=== PATIENT | female | born 1975 | race Caucasian/White ===

== ENCOUNTER 2025-01-16 22:55 | Emergency (ER) | payer OTHER, SELFPAY ==
--- NOTE | ~2025-01-16 | XR_ITS ---
XR abdomen/kub 1V Ordering provider: Beth Nicolas MD History: . eval stool burden . Comparison: None. FINDINGS: BOWEL: Metallic shadows are projected over the lower abdomen and pelvis. Contraceptive wires are seen in the tubes. Nonobstructive bowel gas pattern. Minimal fecal material is seen in the left side of t he pelvis. ORGANOMEGALY: None. SIGNIFICANT PATHOLOGIC CALCIFICATIONS: None. OTHER: No free air is seen under the diaphragm. IMPRESSION: NO ACUTE ABDOMINAL FINDINGS. Minimal fecal material seen in the left side of the colon Reviewed, dictated and finalized at location A.
[2025-01-16 22:58] VITALS: BP 155/105; PULSE 108; RESP 18; TEMP 36.6; O2SAT 100
[2025-01-17 01:30] VITALS: BP 143/89; PULSE 93; RESP 17; O2SAT 99
--- NOTE | 2025-01-17 02:00 | ED_ITS ---
HPI - Nausea/Vomiting/Diarrhea General Chief complaint: Nausea/Vomiting/Diarrhea Stated complaint: CONSTIPATION/ABDOMINAL CRAMPING Time Seen by Provider: 01/17/25 01:48 Source: patient and family () Mode of arrival: ambulatory Limitations: no limitations History of Present Illness HPI Narrative: 49 yo female presents constipation abdominal cramping. n She denies any rectal pain. She has nauseated and nonbloody nonbilious emesis. A colonoscopy he has somewhat recently been performed (last month). She notes that she has hemorrhoids. Patient s/p Essure control procedure. She has occasionally noticed some blood mixed in with stool. She has been trialing stool softener the past 4 days and is now passing small firm rock like stools. Non narcotic or opiate medications. She had started a new medicine for ADHD (atomoxetine) x10 days but then quit because it was making her sick even requiring taking Zofran, 4 days ago. She has noticed mucous discharge from rectum. She try 8 oz of magnesium citrate but then vomited shortly thereafter. She has also tried 2 suppositories a Fleet enema self administered at home although only a little. She denies any dysuria or hematuria. She also started hormone replacement therapy 12/31. Normal vaginal discharge. ALETHA was berries and granola earlier. No current appetite. Feels bloated/distended. Passing flatus. Related Data Allergies Allergy/AdvReac Type Severity Reaction Status Date / Time No Known Allergies Allergy Verified 01/16/25 23:05 [facility] Past Medical History Medical History (Updated 01/18/25 @ 12:32 by Beth Nicolas MD) Hormone replacement therapy 12/31/24 ADHD External hemorrhoids Encounter for Essure implantation Surgical History Surgical History H/O colonoscopy [facility] (Dec 2024) Social History Social History Living arrangements: with family Exam 2 Narrative: GENERAL: Well-appearing, well-nourished, and in no acute distress. HEAD: Normocephalic, atraumatic. EYES: Non injected, non icteric ENT: Nares clear, no rhinorrhea or epistaxis. NECK: Supple. CHEST: Speaking in full sentences. No respiratory distress. HEART: Tachycardic rate and rhythm. . ABDOMEN/GI: Soft, nondistended. Nontender to palpation throughout. No appreciable masses. No rigidity or guarding. No rebound tenderness. Not peritoneal. Rectal exam performed with nurse present. External non thrombosed hemorrhoids. Normal rectal tone. Normal appearing stool on gloved finger. FOBT/guiaic negative. No palpable masses. No appreciable stool ball in rectal vault. EXTREMITIES: Normal range of motion. No lower extremity edema. SKIN: Warm, dry, no rash. NEURO: No focal deficits. Alert and oriented x3. PSYCH: Normal mood and affect. Course Vital Signs Vital signs: Vital Signs Temperature 97.8 F 01/16/25 22:58 Pulse Rate 108 H 01/16/25 22:58 Respiratory Rate 18 01/16/25 22:58 Blood Pressure 155/105 H 01/16/25 22:58 Pulse Oximetry 100 01/16/25 22:58 Oxygen Delivery Room Air 01/16/25 22:58 Temperature 97.8 F 01/16/25 22:58 Pulse Rate 87 01/17/25 06:00 Respiratory Rate 14 01/17/25 06:00 Blood Pressure 139/81 01/17/25 06:00 Pulse Oximetry 100 01/17/25 06:00 Oxygen Delivery Room Air 01/16/25 22:58 MDM - Nausea/Vomiting/Diarrhea MDM Narrative Medical decision making narrative: Patient presents cramping and constipation. She went several days without having a bowel movement and has trialed magnesium citrate, to suppositories, Fleet enema at home as stool softeners 4 days. She has started to success and passing firm rock like small stools. She continues to feel uncomfortable. Passing flatus. In the emergency department she is afebrile vital signs notable for mild tachycardia as well as hypertension. She has a benign abdominal exam as it is soft and nontender. No stool ball in the rectal vault on bedside ABIMBOLA which was performed with RN present as card game operator. For this reason, will defer CT imaging. Mild hyponatremia, no prior for comparison. Patient received IV fluids medications. Reassessment she states she is somewhat more comfortable but is concerned because she feels she still needs to have adequate bowel movements. Patient requesting xray imaging to assess stool burden. Discussed a robust bowel regimen with the combination of stool softeners and laxatives and the role of each traditionally as well as when sympatomatic as she currently is. Urged her to continue the regimen, increase hydration, eat high fiber diet. Patient can also trial another enema at home. She does not feel she needs to have this performed in the ED in order to have a bowel movement here and would be more comfortable doing so at home. Differential Diagnosis Differential diagnosis: Likely other (constipation, bowel obstruction, obstipation; volvulus; considered medication side effect and/or other drug induced etiologies of constipation) Lab Data Attestation: I reviewed the patient's lab results. 01/17/25 02:13 01/17/25 02:13 Labs: Lab Results 01/17/25 01/17/25 Range/Units 02:13 03:06 WBC 7.7 (4.5-10.0) K/mm3 RBC 4.24 (4.2-5.4) M/mm3 Hgb 13.8 (12.0-15.0) g/dL Hct 40.2 (37.0-47.0) % MCV 94.8 (80-100) fl MCH 32.5 (26-34) pg MCHC 34.3 (32-36) g/dl RDW 12.2 (11.5-14.5) % Plt Count 246 (150-375) k/mm3 MPV 10.4 (7.4-10.4) fl Immature Gran % (Auto) 0.4 (0-0.5) % Neut % (Auto) 79.4 H (45.5-73.1) % Lymph % (Auto) 16.6 L (18.3-44.2) % Catron % (Auto) 3.1 (2.6-8.5) % Eos % (Auto) 0.4 (0-4.4) % Baso % (Auto) 0.1 L (0.2-1.2) % Lymph # (Auto) 1.28 (0.9-3.2) K/mm3 Catron # (Auto) 0.2 (0.1-0.6) K/mm3 Eos # (Auto) 0.0 (0-0.3) K/mm3 Baso # (Auto) 0.0 (0.0-0.1) K/mm3 Abs Immat Gran (auto) 0.03 (0.00-0.031) K/mm3 Absolute Neuts (auto) 6.1 (1.3-6.7) K/mm3 Absolute Nucleated RBC 0.000 (0.0-0.012) K/mm3 Nucleated RBC % 0.0 (0.0-0.2) % Sodium 134 L (137-145) mmol/L Potassium 3.9 (3.4-5.0) mmol/L Chloride 96 L (98-107) mmol/L Carbon Dioxide 31 H (22-30) mmol/L Anion Gap 7 (4-12) mmol/L BUN 12 (7-17) mg/dL Creatinine 0.71 (0.7-1.0) mg/dL Estim Creat Clear Calc 71 ml/min Estimated GFR > 60 (59 - ) Glucose 109 (65-110) mg/dL Calcium 8.9 (8.4-10.2) mg/dL Total Bilirubin 1.0 (0.2-1.3) mg/dL AST 25 (14-36) U/L ALT 21 (6-35) U/L Alkaline Phosphatase 87 (38-126) U/L Total Protein 7.0 (6.3-8.2) g/dL Albumin 4.6 (3.5-5.1) g/dL Lipase 54 (23-300) U/L Urine Color Yellow (Yellow) Urine Appearance Clear (Clear) Urine pH >=9.0 H (5.0-9.0) Ur Specific [place] 1.008 (1.001-1.035) Urine Protein Negative (Negative) mg/dL Urine Glucose (UA) Negative (Negative) mg/dL Urine Ketones 1+ H (Negative) mg/dL Ur Blood (Man) Negative (Negative) Urine Nitrate Negative (Negative) Urine Bilirubin Negative (Negative) Urine Urobilinogen 0.2 (<2.0) mg/dL Leukocyte Esterase Rfl Negative (Negative) TANJA/UL POC Urine HCG, Qual Negative (Negative) Imaging Data Attestation: I personally reviewed and interpreted this imaging study as follows: My impression: Patient has residual stool burden appreciated on abdominal x-ray on my independent interpretation particularly in the ascending colon Discharge Plan Discharge Clinical Impression: Hyponatremia, Constipation Patient Disposition: Home, Self-Care Condition: Stable Instructions: Antibiotic Form, Constipation (DC), High Fiber Diet (ED), Hyponatremia (ED) Additional Instructions: As we discussed, continue the bowel regimen that includes both stool softeners and laxatives. You can also use the Bentyl/dicyclomine or that is ordered which can help with the spasm abdominal cramping. Follow-up with your primary care physician. If you do not have 1 the name of the doctors listed below. Return to the emergency department with any new or worsening symptoms including if you stop passing stool or not passing gas (farting). Patient Language: Australian Prescriptions: New dicyclomine 10 mg capsule 20 mg PO BID PRN (Reason: abdominal pain) Qty: 20 0RF polyethylene glycol 3350 [Miralax] 17 gram/dose powder 17 g PO DAILY Qty: 119 0RF psyllium husk [Metamucil] 0.4 gram capsule 0.4 g PO DAILY Qty: 30 0RF magnesium citrate Solution 150 ml PO DAILY Qty: 296 0RF Follow-up/Referrals: Todd Lutz MD [Physician] - (Family practice/primary care) UNKNOWN,DOCTOR [Primary Care Provider] - Stand Alone Forms: Work/School Release IP Time of Disposition: 04:59
--- OUTSIDE RECORDS SUMMARY | 2025-01-17 02:24 | XMS_ITS | Encounter Summary ---
Author Organization [facility] Address 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
--- OUTSIDE RECORDS SUMMARY | 2025-01-17 02:24 | XMS_ITS | Encounter Summary ---
Author Organization [facility] Address [address] [place] [address] Care Team Providers Care Sed High School Teacher Name Role Phone Unavailable Primary Care Provider Unavailabl e Encounter Details Date Type Department Care Team (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
--- OUTSIDE RECORDS SUMMARY | 2025-01-17 02:24 | XMS_ITS | Encounter Summary ---
Author Organization [facility] Address [address] [place] [address] Care Team Providers Care Community Relations Coordinator Name Role Phone Unavailable Primary Care Provider Unavailabl e Encounter Details Date Type Department Care Team ([facility] st Contact Info) Description 10/10/1999 Outpatient Historical [facility] Primary Care - [address] [place] [phone] Maksim Ch, DO NO ADDRESS ON FILE Social History Tobacco Use Types Packs/Day Years Used Date Smoking Tobacco: Never Assessed Comments Unknown Sex and Gender Information Value Date Recorded Sex Assigned at Not on file 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
--- OUTSIDE RECORDS SUMMARY | 2025-01-17 02:24 | XMS_ITS | Encounter Summary ---
Author Organization [facility] Address [address] [place] [address] Care Team Providers Care Lottery Manager Name Role Phone Unavailable Primary Care Provider Unavailabl e Encounter Details Date Type Department Care Team (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
--- OUTSIDE RECORDS SUMMARY | 2025-01-17 02:24 | XMS_ITS | Encounter Summary ---
Author Organization [facility] Address [address] [place] [address] Care Team Providers Care Drug Safety Data Management Specialist Name Role Phone Unavailable Primary Care Provider Unavailabl e Encounter Details Date Type Department Care Team (Late st Contact Info) Description 04/10/2001 Outpatient Historical [facility] Primary Care - [address] [place] [phone] Maksim Ch, DO NO ADDRESS ON FILE Social History Tobacco Use Types Packs/Day Years Used Date Smoking Tobacco: Never Assessed Comments Unknown Sex and Gender Information Value Date Recorded Sex Assigned at Not on file 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
--- OUTSIDE RECORDS SUMMARY | 2025-01-17 02:24 | XMS_ITS | Encounter Summary ---
Author Organization [facility] Address 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
--- OUTSIDE RECORDS SUMMARY | 2025-01-17 02:24 | XMS_ITS | Encounter Summary ---
Author Organization [facility] Address 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
--- OUTSIDE RECORDS SUMMARY | 2025-01-17 02:25 | XMS_ITS | Clinical Summary ---
Author Organization [facility] [address] Address [address] [place] [address] Care Team Providers Care Mc Kay Machine Operator Name Role Phone Yumiko Wayne MD Unavailable Dixie Mckenzie PT Unavailable Unavailable Yumiko Wanye MD Primary Care Provider [phone] Vivienne Reece MD Unavailable Allergies No known active allergies Medications buPROPion XL (WELLBUTRIN XL) 300 mg 24 hr tablet Take 1 tablet (300 mg total) by mouth every morning 90 tablet 1 3 Active clonazePAM (KlonoPIN) 0.5 mg tablet Take 1 tablet (0.5 mg total) by mouth 2 (two) times a day as needed for anxiety Active lamoTRIgine (LaMICtal) 100 mg tablet TAKE 2 AND 1/2 TABLETS BY MOUTH DAILY 225 tablet 3 3 Active lisinopriL (PRINIVIL,ZESTR IL) 20 mg tablet 1 tablet (20 mg total) 5 Active tretinoin (RETIN-A) 0.025 % cream APPLY CREAM TOPICALLY TO FACE ONCE DAILY AT BEDTIME Active omeprazole (PriLOSEC) 40 mg capsule 1 capsule (40 mg total) 5 Active estradioL (VIVELLE-DOT) 0.05 mg/24 hrIndications:V asomotor Symptoms associated with Menopause Apply patch to dry skin twice weekly. Remove old patch. 24 patch 5 Active progesterone (Prometrium) 200 mg capsuleIndicati ons:Endometrial Hyperplasia Prevention Take one by mouth at bedtime 90 capsule 5 Active omeprazole (PriLOSEC) 20 mg capsule 8 12/21/19 25 Discontinu ed(Therapy completed) HYDROcodone-rocky taminophen (NORCO) 5-325 mg per tabletIndicatio ns:Pain Take 1 tablet by mouth every 8 (eight) hours as needed for pain 21 tablet 3 12/21/19 25 Discontinu ed(Therapy completed) ondansetron (ZOFRAN) 4 mg tabletIndicatio ns:Prevention of Post-Operative Nausea and Vomiting Take 1 tablet (4 mg total) by mouth every 6 (six) hours as needed for nausea or vomiting 30 tablet 1 3 12/21/19 25 Discontinu ed(Therapy completed) Active Problems Problem Noted Date Diagnosed Date Bipolar affective disorder, currently depressed, moderate 01/16/2023 Encounters Date Type Department Care Team Description 12/31/2024 11:55 AM ROCK CONTRACTOR Office Visit [facility] [id number] [address] Nancy Mayes NP Menopausal symptoms (Primary Dx) 12/30/2024 Results Follow-Up [facility] [address] [address] Nancy Mayes NP 2024 9:40 AM ROCK CONTRACTOR Office Visit [facility] [address] [address] Nancy Mayes NP Routine gynecological examination (Primary Dx); Menopausal symptoms; Breast cancer screening by mammogram from Last 3 Months Surgical History Surgery Date Site/Laterality Comments TONSILLECTOMY AND ADENOIDECTOMY as child Medical History Medical History Date Comments Bipolar affective disorder (HCC) Depression Anxiety Hypertension GERD (gastroesophageal reflux disease) Family History Medical History Relation Name Comments Cirrhosis Father Breast cancer Mother stage 2, was t old it was environmental. s/p lumpectomy and RT. Immunodeficiency Mother Pneumonia, sepis caused age 56. Colon cancer Neg Hx Ovarian cancer Neg Hx Relation Name Status Comments Father Mother Social History Tobacco Use Types Packs/Day Years Used Date Smoking Tobacco: Never Passive Smoke Exposure: Never Smokeless Tobacco: Never Tobacco Cessation:Counseling Given: Not Answered Comments No Sex and Gender Information Value Date Recorded Sex Assigned at Not on file Legal Sex Female 10:27 AM ROCK CONTRACTOR Gender Identity Female 12/03/2022 10:12 PM ROCK CONTRACTOR Sexual Orientation Straight 12/03/2022 10 :12 PM ROCK CONTRACTOR Obstetrics History Para Term AB IAB SAB Ectopic Multiple Livin g Live Births 2 2 2 2 2 Date Outcome GA Total Labor Labor/3rd Weight Sex Type Anes PTL Padma A1 A5 Name Clin 2000 Term 2001 Term Comments x2, 2 daughters, both he althy Last Filed Vital Signs Vital Sign Reading Time Taken Comments Blood Pressure 121/88 12/31/2024 11:55 AM ROCK CONTRACTOR Pulse 80 10/07/2023 1:25 PM ROCK CONTRACTOR Temperature 36.4 C (97.6 F) 05/25/2018 3:35 PM CDT Respiratory Rate 18 05/25/2018 3:34 PM CDT Oxygen Saturation 95% 05/25/2018 3:34 PM CDT Inhaled Oxygen Concentration - - Weight 59.4 kg (131 lb) 12/31/2024 11:55 AM ROCK CONTRACTOR Height 162.6 cm (5' 4 ) 12/31/2024 11:55 AM ROCK CONTRACTOR Body Mass Index 22.49 12/31/2024 11:55 AM ROCK CONTRACTOR Plan of Treatment Health Maintenance Due Date Last Done Comments Breast Cancer Screening-Mammogram 1974 Colon Cancer Screening-Colonoscopy 1974 Depression Screening 1974 Hepatitis C Screening 1974 DTaP/Tdap/Td Vaccine (1 - Tdap) 1985 Hepatitis B Screening 1992 Covid-19 Vaccine ( season) 2024 10/13/2021, 02/11/2021, 01/19/2021 Influenza Vaccine (#1) 2024 , 08/20/2020, 12/06/2016, Additional history exists Zoster Vaccine (1 of 2) 2024 Cervical Cancer Screening 2025 2024 Regular Well Visit/Exam 18-64 2025 2024 Pneumococcal vaccine <65 Aged Out No longer eligible based on patient's age to complete this topic Procedures Procedure Name Priority Date/Time Associated Diagnosis Comments THINPREP IMAGING PAP AND HPV MRNA E6/E7 REFLEX HPV 16,18/45 Routine 2024 11:28 AM ROCK CONTRACTOR Routine gynecological examination TESTOSTERONE, TOTAL AND FREE, SERUM Routine 2024 10:40 AM ROCK CONTRACTOR Menopausal symptoms COMPREHENSIVE METABOLIC PANEL Routine 2024 10:40 AM ROCK CONTRACTOR Menopausal symptoms ESTRONE Routine 2024 10:40 AM ROCK CONTRACTOR Menopausal symptoms ESTRADIOL Routine 2024 10:40 AM ROCK CONTRACTOR Menopausal symptoms from Last 3 Months Results * ThinPrep(R) Imaging Pap and HPV mRNA E6/E7 Reflex HPV 16,18/45 (2024 11:28 AM ROCK CONTRACTOR) CLINICAL INFORMATION: [facility] Comment:None given LMP [facility] Comment:NONE GIVEN Previous Pap [facility] Comment:NONE GIVEN Prev. Bx [facility] Comment:NONE GIVEN SOURCE: [facility] Comment:None given Pap, specimen adequacy [facility] Comment: Satisfactory for evaluation. Endocervical/transformation zone component present. Age and/or menstrual status not provided HPV interp [facility] Comment: Cytology Results: Negative for intraepithelial lesion or malignancy. COMMENTS [facility] Comment: This case could not be evaluated with computer assisted technology. The slide was manually screened according to routine procedures. Coin Rolling Machine Operator Gustavo [facility] Comment: TLS, CT(ASCP) CT Screening Location: [place] [address] Comment [facility] Comment: EXPLANATORY NOTE: The Pap is a screening test for cervical cancer. It is not a diagnostic test and is subject to false negative and false positive results. It is most reliable when a satisfactory sample, regularly obtained, is submitted with relevant clinical findings and history, and when the Pap result is evaluated along with historic and current clinical information. Human papillomavirus RNA, High Risk E6/E7 Not Detected Not Detected [facility] Comment: Methodology: Studio Assistant-Mediated Amplification This assay detects E6/E7 viral messenger RNA (mRNA) from 14 high-risk HPV types (16,18,31,33,35,39,45,51,52,56,58,59,66,68). Cervical sources are required for HPV testing. If a vaginal source from a patient who has had a total hysterectomy with removal of cervix was submitted, please contact the testing laboratory for alternative testing options. For additional information, please refer to http://education.ev-social/faq/ANW756j6 (This link if provided for information/ educational purposes only.) Swab 2024 11:2 8 AM ROCK CONTRACTOR 2024 11:20 PM ROCK CONTRACTOR Nancy Mayes STOCK PREPARATION SUPERVISOR LAB CYTOLOGY ORDERABLES Final Result [facility] [address] [place] [address] [facility] [address] [place] [address] * Estrone (2024 10:40 AM ROCK CONTRACTOR) Estrone, lc/ms/ms <10 pg/mL [facility], Comment: Adult Female Reference Ranges for Estrone: Follicular Phase: 10-138 pg/mL Luteal Phase: 16-173 pg/mL Postmenopausal Phase: < or = 65 pg/mL Pediatric Female Reference Ranges for Estrone: Pre-pubertal (1-9 years): < or = 34 pg/mL 10-11 years: < or = 72 pg/mL 12-14 years: < or = 75 pg/mL 15-17 years: < or = 188 pg/mL This test was developed and its analytical performance characteristics have been determined by [facility]. It has not been cleared or approved by FDA. This assay has been validated pursuant to the CLIA regulations and is used for clinical purposes. Blood 2024 10:4 0 AM ROCK CONTRACTOR 2024 10:41 AM ROCK CONTRACTOR Nancy RennyJuan Mayes STOCK PREPARATION SUPERVISOR LAB BLOOD ORDERABLES Final Re sult Performing Organization Address [facility]/ZIP Co de Phone Number [facility], [address] [place] [address] * Estradiol (2024 10:40 AM ROCK CONTRACTOR) Estradiol 16 pg/mL [facility] Comment: Reference Range Follicular Phase: 19-144 Mid-Cycle: 64-357 Luteal Phase: 56-214 Postmenopausal: < or = 31 Reference range established on post-pubertal patient population. No pre-pubertal reference range established using this assay. For any patients for whom low Estradiol levels are anticipated (e.g. males, pre-pubertal children and hypogonadal/post-menopausal females), the [facility] Estradiol, Ultrasensitive, LCMSMS assay is recommended (order code 15711). Please note: patients being treated with the drug fulvestrant (Faslodex(R)) have demonstrated significant interference in immunoassay methods for estradiol measurement. The cross reactivity could lead to falsely elevated estradiol test results leading to an inappropriate clinical assessment of estrogen status. [facility] order code [id number], Ultrasensitive LC/MS/MS demonstrates negligible cross reactivity with fulvestrant. Blood 2024 10:4 0 AM ROCK CONTRACTOR 2024 10:41 AM ROCK CONTRACTOR Nancy Mayes STOCK PREPARATION SUPERVISOR LAB BLOOD ORDERABLES Final Re sult [facility] [address] [address] * Testosterone, Total and Free, Serum (2024 10:40 AM ROCK CONTRACTOR) Testosterone 16 2 - 45 ng/dL [facility] Comment: For additional information, please refer to https://education.ev-social/faq/MMT076 (This link is being provided for informational/educational purposes only.) (Note) This test was developed and its analytical performance characteristics have been determined by [facility]. It has not been cleared or approved by the FDA. This assay has been validated pursuant to the CLIA regulations and is used for clinical purposes. Testosterone, free 1.6 0.1 - 6.4 pg/mL [facility] Comment: (Note) This test was developed and its analytical performance characteristics have been determined by [facility]. It has not been cleared or approved by the FDA. This assay has been validated pursuant to the CLIA regulations and is used for clinical purposes. [facility] [address] [place] [address],[address] [facility] [address] Brianna Delgado MD, PhD Sex hormone binding globulin 80.2 17 - 124 nmol/L [facility] Blood 2024 10:4 0 AM ROCK CONTRACTOR 2024 10:41 AM ROCK CONTRACTOR us Nancy Mayes STOCK PREPARATION SUPERVISOR LAB BLOOD ORDERABLES Final Re sult [facility] [address] [address], [address] [place] [address] * Comprehensive metabolic panel (2024 10:40 AM ROCK CONTRACTOR) Glucose 87 65 - 99 mg/dL [facility] Comment: Fasting reference interval BUN 9 7 - 25 mg/dL [facility] Creatinine 0.72 0.50 - 1.03 mg/dL [facility] eGFR 102 > OR = 60 mL/min/1.7 3m2 [facility] BUN/creat ratio SEE NOTE: 6 - 22 (calc) [facility] Comment: Not Reported: BUN and Creatinine are within reference range. Sodium 142 135 - 146 mmol/L [facility] Potassium, pl 4.0 3.5 - 5.3 mmol/L [facility] Chloride 103 98 - 110 mmol/L [facility] CO2 31 20 - 32 mmol/L [facility] Calcium 9.5 8.6 - 10.4 mg/dL [facility] Protein, sr 6.9 6.1 - 8.1 g/dL [facility] Albumin 4.8 3.6 - 5.1 g/dL [facility] GLOBULIN 2.1 1.9 - 3.7 g/dL (calc) [facility] Alb/glob ratio 2.3 1.0 - 2.5 (calc) [facility] Bilirubin, total 0.6 0.2 - 1.2 mg/dL [facility] Alk phos 71 37 - 153 U/L [facility] AST 19 10 - 35 U/L [facility] ALT (SGPT) 21 6 - 29 U/L [facility] Blood 2024 10:4 0 AM ROCK CONTRACTOR 2024 10:41 AM ROCK CONTRACTOR us Nancy Mayes STOCK PREPARATION SUPERVISOR LAB BLOOD ORDERABLES Final Re sult [facility] [address] [phone] from Last 3 Months Insurance [facility] [facility] H[facility]/PPO Address: [facility] [address] [place] [address] [facility]/PPO Address: [address] [address] [place] [address] [facility] CHOICE [employer] [facility]/PPO Address: [address] [address] [place] [address] Care Teams Mc Kay Machine Operator Relationship Specialty Start Date End Date Yumiko Wayne MD [address] [place] [address] [address] RADHA Saldana [address] [place] [address] PCP - General Family Medicine 06/06/18 Yumiko Wayne MD [address] [place] [address] [address] RADHA Saldana [address] [place] [address] Referring Physician Family Medicine 03/10/18 Dixie Mckenzie PT Physical Therapist Physical Therapy 03/17/18 [place] [address] [place] [address] Consulting Physician Obstetrics and Gynecology 12/20/24
--- OUTSIDE RECORDS SUMMARY | 2025-01-17 02:25 | XMS_ITS | Encounter Summary ---
Author Organization [facility] Address [address] [place] [address] Care Team Providers Care Front Maker Name Role Phone Unavailable Primary Care Provider Unavailabl e Encounter Details Date Type Department Care Team (Late st Contact Info) Description 02/07/2000 Outpatient Historical [facility] Primary Care - [address] [place] [address] Maksim Ch, DO NO ADDRESS ON FILE Social History Tobacco Use Types Packs/Day Years Used Date Smoking Tobacco: Never Assessed Comments Unknown Sex and Gender Information Value Date Recorded Sex Assigned at Not on file Legal Sex Female 3:32 AM VICE PRESIDENT NETWORK Gender Identity Not on file Sexual Orientation Not on file documented as of this encounter Plan of Treatment Not on file documented as of this encounter Visit Diagnoses Not on filedocumented in this encounter
--- OUTSIDE RECORDS SUMMARY | 2025-01-17 02:25 | XMS_ITS | Encounter Summary ---
Author Organization [facility] Address [address] [place] [address] Care Team Providers Care It Software Engineer Name Role Phone Yumiko Wayne MD Unavailable Dixie Mckenzie PT Unavailable Unavailable Yumiko Wayne MD Primary Care Provider [phone] Reason for Visit * Diagnostic Imaging (Routine) - Closed Specialty Diagnoses / Procedures Referred By Kirsty t Referred To Contact Diagnoses Left shoulder pain, unspecified chronicity Procedures XR Shoulder Left 2 or More Views Kirk Gomez PA [address] [place] [address] [address], [place] [address] Phone: tel: fax: Referral ID Status Reason Start Date Expiration Date Visits Re quested Visits Authorized [id number] Closed 08/09/2023 09/07/2024 1 1 Encounter Details Date Type Department Care Team (Late st Contact Info) Description 08/09/2023 11:14 AM CDT Hospital Encounter [facility] Orthopedics and Sports Medicine [address] [place] [address] [address], [place] [address] Social History Tobacco Use Types Packs/Day Years Used Date Smoking Tobacco: Never Passive Smoke Exposure: Never Smokeless Tobacco: Never Comments No Sex and Gender Information Value Date Recorded Sex Assigned at Not on file Legal Sex Female 10:27 AM SKILLED LABOR Gender Identity Female 12/03/2022 10:12 PM SKILLED LABOR Sexual Orientation Straight 12/03/2022 10 :12 PM SKILLED LABOR documented as of this encounter Plan of Treatment Not on file documented as of this encounter Procedures Procedure Name Priority Date/Time Associated Diagnosis Comments XR SHOULDER LEFT 2 OR MORE VIEWS Schedule Routine, Read Routine (OP Routine) 08/09/2023 11:14 AM CDT Closed nondisplaced fracture of greater tuberosity of left humerus, initial encounter documented in this encounter Results * XR Shoulder Left 2 or More Views (08/09/2023 11:14 AM CDT) Anatomical Region Laterality Modality Upper Extremities, Shoulder Left Digi fiorella Radiography Narrative 08/09/2023 11:38 AM CDT Four views of the left shoulder show well-maintained glenohumeral and acromioclavicular joint spaces. A type 1 acromion is seen. There is a nondisplaced greater tuberosity fracture that appears to have bony reabsorption in the area of the fracture line. Kirk SANCHEZ IMSamy XR PROCEDURES Edited Re sult - Final documented in this encounter Visit Diagnoses Not on filedocumented in this encounter Care Teams It Software Engineer Relationship Specialty Start Date End Date Yumiko Wayne MD [address] [place] [address] DR RADHA Sald[address] [place] [address] PCP - General Family Medicine 06/06/18 Yumiko Wayne MD [address] [place] [address] DR RADHA Saldana [address] [place] [address] Referring Physician Family Medicine 03/10/18 Dixie Mckenzie, PT Physical Therapist Physical Therapy 03/17/18 documented as of this encounter
--- OUTSIDE RECORDS SUMMARY | 2025-01-17 02:25 | XMS_ITS | Encounter Summary ---
Author Organization [facility] Address [address] [place] [address] Care Team Providers Care Animal Shelter Clerk Name Role Phone Unavailable Primary Care Provider Unavailabl e Encounter Details Date Type Department Care Team ([facility] st Contact Info) Description 05/30/1999 Outpatient Historical [facility] Primary Care - [address] [place] [address] Maksim Ch, DO NO ADDRESS ON FILE Social History Tobacco Use Types Packs/Day Years Used Date Smoking Tobacco: Never Assessed Comments Unknown Sex and Gender Information Value Date Recorded Sex Assigned at Not on file Legal Sex Female 3:32 AM BUDGET ACCOUNTANT Gender Identity Not on file Sexual Orientation Not on file documented as of this encounter Plan of Treatment Not on file documented as of this encounter Visit Diagnoses Not on filedocumented in this encounter
--- OUTSIDE RECORDS SUMMARY | 2025-01-17 02:25 | XMS_ITS | Referral Summary ---
Author Organization [facility] Address [address] [place] [address] Care Team Providers Care Preparation Supervisor Freezing Name Role Phone Unavailable Primary Care Provider Unavailabl e Source Comments [facility],non-owned Affiliates and Associated Physician Practices is amultiple site organization consisting of ambulatory clinics and hospital sitesin [place], [place], [place] and [place]. This disclosure is being madepursuant to the Care Everywhere program and may not contain all information available regarding this patient. Last updated 18.[facility] Social History Tobacco Use Types Packs/Day Years Used Date Smoking Tobacco: Never Assessed Sex and Gender Information Value Date Recorded Sex Assigned at Not on file Gender Identity Not on file Sexual Orientation Not on file Plan of Treatment Not on file
--- OUTSIDE RECORDS SUMMARY | 2025-01-17 02:25 | XMS_ITS | Encounter Summary ---
Author Organization [facility] Address [address] [place] [address] Care Team Providers Care Dry Cleaning Machine Operator Helper Name Role Phone Unavailable Primary Care Provider Unavailabl e Encounter Details Date Type Department Care Team (Late st Contact Info) Description 06/09/2001 Outpatient Historical [facility] Primary Care - [address] [place] [phone] Maksim hC, DO NO ADDRESS ON FILE Social History Tobacco Use Types Packs/Day Years Used Date Smoking Tobacco: Never Assessed Comments Unknown Sex and Gender Information Value Date Recorded Sex Assigned at Not on file Legal Sex Female 3:32 AM SLUBBER OPERATOR Gender Identity Not on file Sexual Orientation Not on file documented as of this encounter Plan of Treatment Not on file documented as of this encounter Visit Diagnoses Not on filedocumented in this encounter
--- OUTSIDE RECORDS SUMMARY | 2025-01-17 02:25 | XMS_ITS | Encounter Summary ---
Author Organization [facility] Address [address] [place] [address] Care Team Providers Care Stocking Inspector Name Role Phone Unavailable Primary Care Provider Unavailabl e Encounter Details Date Type Department Care Team ([facility] st Contact Info) Description 07/22/1998 Outpatient Historical [facility] Primary Care - [address] [place] [address] Maksim Ch, DO NO ADDRESS ON FILE Social History Tobacco Use Types Packs/Day Years Used Date Smoking Tobacco: Never Assessed Comments Unknown Sex and Gender Information Value Date Recorded Sex Assigned at Not on file Legal Sex Female 3:32 AM REGISTERED DENTAL ASSISTANT Gender Identity Not on file Sexual Orientation Not on file documented as of this encounter Plan of Treatment Not on file documented as of this encounter Visit Diagnoses Not on filedocumented in this encounter
--- OUTSIDE RECORDS SUMMARY | 2025-01-17 02:25 | XMS_ITS | Encounter Summary ---
Author Organization [facility] Address [address] [place] [address] Care Team Providers Care Channel Marketing Manager Name Role Phone Unavailable Primary Care Provider Unavailabl e Encounter Details Date Type Department Care Team ([facility] st Contact Info) Description 08/18/[address] [facility] Primary Care - [address] [place] [address] Maksim Ch, DO NO ADDRESS ON FILE Social History Tobacco Use Types Packs/Day Years Used Date Smoking Tobacco: Never Assessed Comments Unknown Sex and Gender Information Value Date Recorded Sex Assigned at Not on file Legal Sex Female 3:32 AM PRESS LOADER Gender Identity Not on file Sexual Orientation Not on file documented as of this encounter Plan of Treatment Not on file documented as of this encounter Visit Diagnoses Not on filedocumented in this encounter
--- OUTSIDE RECORDS SUMMARY | 2025-01-17 02:25 | XMS_ITS | Encounter Summary ---
Author Organization [facility] Address [address] [place] [address] Care Team Providers Care Enterprise Solutions Architect Name Role Phone Unavailable Primary Care Provider Unavailabl e Encounter Details Date Type Department Care Team (Latest Contact Info) Description 12/28/2024 Results Follow-Up [facility] [place] [address] [place] [address] Patricia Hernández MD [address] [address] [place] [address] COLONOSCOPY REPORT Social History Tobacco Use Types Packs/Day Years Used Date Smoking Tobacco: Never Smokeless Tobacco: Never Alcohol Use Standard Drinks/Week Comments Yes 4 (1 standard drink = 0.6 oz pur e alcohol) Feeling Safe Answer Date Recorded Are you in a relationship wi th someone who hurts you emotionally and/or physically? No 12/28/2024 Comments No Sex and Gender Information Value Date Recorded Sex Assigned at Not on file Legal Sex Female 3:32 AM INTERACTIVE GRAPHIC DESIGNER Gender Identity Not on file Sexual Orientation Not on file documented as of this encounter Plan of Treatment Not on file documented as of this encounter Visit Diagnoses Not on filedocumented in this encounter
--- OUTSIDE RECORDS SUMMARY | 2025-01-17 02:25 | XMS_ITS | Encounter Summary ---
Author Organization [facility] Address [address] [place] [address] Care Team Providers Care Engraving Patternmaker Name Role Phone Unavailable Primary Care Provider Unavailabl e Encounter Details Date Type Department Care Team (Late st Contact Info) Description 11/10/2021 Lab Requisition [facility] DermPath Lab [address] [place] [address] Jose Harris MD [address] [address] Social History Tobacco Use Types Packs/Day Years Used Date Smoking Tobacco: Never Assessed Sex and Gender Information Value Date Recorded Sex Assigned at Not on file Gender Identity Not on file Sexual Orientation Not on file documented as of this encounter Plan of Treatment Not on file documented as of this encounter Procedures Procedure Name Priority Date/Time Associated Diagnosis Comments DERMATOPATHOLOGY Routine 11/06/2021 12:0 0 AM PAPER MACHINE BACK TENDER documented in this encounter Results * DERMATOPATHOLOGY (11/06/2021 12:00 AM PAPER MACHINE BACK TENDER) Case Report Dermatopathology Report Case: [id number] Authorizing Provider: Jose Harris MD Collected: 11/06/2021 12:00 AM Ordering Location: [facility] Care DermPath Lab Received: 11/10/2021 07:39 AM Pathologist: Kelly Reese MD Specimen: Skin, left leg lower medial 2 1:04 PM PAPER MACHINE BACK TENDER DERMATOPATHOLOGY LABORATORY Final Diagnosis Specimen A. SKIN, left leg lower medial: DERMATOFIBROMA, HYPOCELLULAR (D23.9) 2 1:04 PM PAPER MACHINE BACK TENDER DERMATOPATHOLOGY LABORATORY Clinical History Dermatofibroma R/O BCC. 2 1:04 PM [facility] DERMATOPATHOLOGY LABORATORY Gross Description Specimen A: Received is one formalin filled container labeled with the patient's name and designated left leg lower medial. The specimen consists of a shave biopsy measuring 1s2p3ol. Jar 0. 2 1:04 PM [facility] DERMATOPATHOLOGY LABORATORY Microscopic Description Specimen A. SKIN, left leg lower medial: There is epidermal hyperplasia. Within the dermis, there are fibrohistiocytic cells in haphazard array among coarse collagen bundles. 2 1:04 PM PAPER MACHINE BACK TENDER DERMATOPATHOLOGY LABORATORY Disclaimer An external and internal positive and negative controls are appropriate for the histochemical, immunohistochemical and immunofluorescence stain(s) in this case (if any), except where stated explicitly. The performance characteristics of the stain(s) cited in this report were developed and its performance characteristic determined by the Dermatopathology Laboratory at [facility], directed by Dr. Hansel Cheung. These tests need not be, and therefore are not, approved by the [place] Food and Drug Administration. The tests are used for clinical purposes. Billing Codes Specimen Charges Stain Charges 55759 1 2 1:04 PM PAPER MACHINE BACK TENDER DERMATOPATHOLOGY LABORATORY Embedded Images 2 1:04 PM [facility] DERMATOPATHOLOGY LABORATORY Pathology/Cytolog y TISSUE SPECIMEN FROM SKIN / Unknown 11/06/2021 11/10/2021 7:39 AM PAPER MACHINE BACK TENDER Jose Harris MD LAB - PATHOLOGY/CYTO LOGY ORDERABLES DERMATOPATHOLOGY LABORATORY [facility] - Department of Dermatology [address], [address] [phone] documented in this encounter Visit Diagnoses Not on filedocumented in this encounter
--- OUTSIDE RECORDS SUMMARY | 2025-01-17 02:25 | XMS_ITS | Clinical Summary ---
Author Organization [facility] Address [address] [place] [address] Care Team Providers Care Canopy Inspector Name Role Phone Unavailable Primary Care Provider Unavailabl e Source Comments [facility],non-owned Affiliates and Associated Physician Practices is amultiple site organization consisting of ambulatory clinics and hospital sitesin [place], [place], [place] and [place]. This disclosure is being madepursuant to the Care Everywhere program and may not contain all information available regarding this patient. Last updated 18.[facility] dscovered Social History Tobacco Use Types Packs/Day Years Used Date Smoking Tobacco: Never Assessed Sex and Gender Information Value Date Recorded Sex Assigned at Not on file Gender Identity Not on file Sexual Orientation Not on file Plan of Treatment Health Maintenance Due Date Last Done Comments COLOGUARD (AGES 45-75) - COL ON CA SCREENING 1974 COLON MONITORING 1974 COLONOSCOPY - COLON CA SCREENING 1974 CT COLONOGRAPHY - COLON CA SCREENING 1974 Colorectal Cancer Screening 1974 FIT - COLON CA SCREENING 1974 FLEX SIG - COLON CA SCREENING 1974 LIPID TESTING 1974 MAMMOGRAM 1974 PAP SMEAR 1974 HIV SCREENING 1989 HEPATITIS C SCREENING 12/16/1992 DTAP/TDAP/TD VACCINES (1 - Tdap) 1993 HEPATITIS B VACCINE (1 of 3 - 19+ 3-dose series) 1993 COVID-19 VACCINE ( - 2023-2 5 season) 2024 INFLUENZA VACCINE (#1) 2024 DEPRESSION SCREENING 11/04/2024 PNEUMOCOCCAL VACCINE 50+ (1 of 1 - PCV) 2024 ZOSTER VACCINE (1 of 2) 2024 HIB VACCINE Aged Out No longer eligi ble based on patient's age to complete this topic HPV VACCINE Aged Out No longer eligi ble based on patient's age to complete this topic MENINGOCOCCAL (Group B) VACC INE SHARED DECISION-MAKING Aged Out No longer eligibl e based on patient's age to complete this topic MENINGOCOCCAL GROUPS A/C/Y/W VACCINE Aged Out No longer eligible b ased on patient's age to complete this topic PNEUMOCOCCAL VACCINE Aged Out No long er eligible based on patient's age to complete this topic
--- OUTSIDE RECORDS SUMMARY | 2025-01-17 02:25 | XMS_ITS | Encounter Summary ---
Author Organization [facility] Address [address] [place] [address] Care Team Providers Care Warp Tying Machine Tender Name Role Phone Yumiko Wayne MD Unavailable Dixie Mckenzie PT Unavailable Unavailable Yumiko Wayne MD Primary Care Provider [phone] Vivienne Reece MD Unavailable Encounter Details Date Type Department Care Team (Late st Contact Info) Description 12/30/2024 Results Follow-Up [facility] [address] [address] [place] [address] [place] [address] Social History Tobacco Use Types Packs/Day Years Used Date Smoking Tobacco: Never Passive Smoke Exposure: Never Smokeless Tobacco: Never Comments No Sex and Gender Information Value Date Recorded Sex Assigned at Not on file Legal Sex Female 10:27 AM COIN MACHINE OPERATOR Gender Identity Female 12/03/2022 10:12 PM COIN MACHINE OPERATOR Sexual Orientation Straight 12/03/2022 10 :12 PM COIN MACHINE OPERATOR documented as of this encounter Plan of Treatment Not on file documented as of this encounter Visit Diagnoses Not on filedocumented in this encounter Care Teams Warp Tying Machine Tender Relationship Specialty Start Date End Date Yumiko Wayne MD [address] [facility] [address] [place] [address] PCP - General Family Medicine 06/06/18 Yumiko Wayne MD [address] [facility] [address] [place] [address] Referring Physician Family Medicine 03/10/18 Dixie Mckenzie, PT Physical Therapist Physical Therapy 03/17/18 [place] [address] [place] [address] Consulting Physician Obstetrics and Gynecology 12/20/24 documented as of this encounter
--- OUTSIDE RECORDS SUMMARY | 2025-01-17 02:25 | XMS_ITS | Clinical Summary ---
Author Organization [facility] Address [address] [place] [address] Phone Care Team Providers Care Actimize Architect Name Role Phone Provider, None Primary Care Provider Unavailabl e Social History Tobacco Use Types Packs/Day Years Used Date Smoking Tobacco: Never Assessed Comments Unknown Sex and Gender Information Value Date Recorded Sex Assigned at Not on file Legal Sex Female 12:01 AM CDT Gender Identity Not on file Sexual Orientation Not on file Plan of Treatment Health Maintenance Due Date Last Done Comments Hepatitis C Virus (HCV) Screening 1974 TdaP Immunization 1974 Hepatitis B Immunization (1 of 3 - 19+ 3-dose series) 1993 Colonoscopy 2019 Colorectal Cancer Screening 2019 Influenza Immunization (#1) 2024 12/06/2016 SARS-COV-2 Immunization ( season) 2024 10/13/2021, 02/11/2021, 01/19/2021 Cologuard 2024 Immunochemical Fecal Occult Blood 2024 Pneumococcal Immunization (5 0+ years) (1 of 1 - PCV) 2024 Zoster Immunization (1 of 2) 2024 Respiratory Syncytial Virus (RSV) Immunization (Adult) (1 - 1-dose 75+ series) 2049 Meningococcal Immunization (ACWY) Aged Out No longer eligible b ased on patient's age to complete this topic Rotavirus Immunization Aged Out No lo nger eligible based on patient's age to complete this topic Care Teams Actimize Architect Relationship Specialty Start Date End Date Provider, None [place] PCP - General 03/08/18
--- OUTSIDE RECORDS SUMMARY | 2025-01-17 02:25 | XMS_ITS | Encounter Summary ---
Author Organization [facility] Address [address] [place] [address] Care Team Providers Care Circle Saw Operator Name Role Phone Unavailable Primary Care Provider Unavailabl e Encounter Details Date Type Department Care Team ([facility] st Contact Info) Description 02/20/1999 Outpatient Historical [facility] Primary Care - [address] [place] [address] Maksim Ch, DO NO ADDRESS ON FILE Social History Tobacco Use Types Packs/Day Years Used Date Smoking Tobacco: Never Assessed Comments Unknown Sex and Gender Information Value Date Recorded Sex Assigned at Not on file Legal Sex Female 3:32 AM STUDENT FINANCIAL SERVICES COUNSELOR Gender Identity Not on file Sexual Orientation Not on file documented as of this encounter Plan of Treatment Not on file documented as of this encounter Visit Diagnoses Not on filedocumented in this encounter
--- OUTSIDE RECORDS SUMMARY | 2025-01-17 02:25 | XMS_ITS | Data Portability ---
Author Organization [place] [facility], Main Office Address [address] [place] [address] Assessment No assessment recorded. Plan of Treatment Reminders Order Date Submit Date Provider Last Modified By Organization Details Last Modified Time Details Appointments FOLLOW UP 15 2024 09:45A M Dr. Harris Not available Not available Not available Lab None recorded. Referral None recorded. Procedures biopsy, skin (PROC) 2021 022 Not available 11/06/2021 14:42:08 Surgeries None recorded. Imaging None recorded. Medication Orders tretinoin 0.025 % topical cream 2024 025 [facility] [facility], [place], [address], 11/26/2024 14:33:12 Patient TargetsNo targets recorded. Patient Instructions Encounter Date Encounter Id Patient Instructions Last Modified By Organization Details Last Modified Time 11/06/2021 [id number] Informed consent . EtOH prep. 1% lidocaine with epinephrine. Shave biopsy from: LEFT LEG LOWER MEDIAL R/O DF, BCC, NEVUS AlCL3 hemostasis. Aquaphor, bandage and wound care given. Will call pt with path. Also had cryo to a left cheek lentigo vs mac SK ([place]). Not available 11/06/2021 14:44:48 11/26/2024 [id number] retin -A face Cryo to l cheek, l p shoulder mac SK vs lentigo. REVD DX TX AND ANCILLARY CARE. Sun protection. Revd spider vein; revd best tx if desired- laser-[facility] or [facility]. No evidence of CA. fu 6mos. Not available 11/26/2024 14:37:01 Reason for Referral None Reported. Problems Name Problem SNOMED Code Status Onset Date Resolution Date Notes Provider Name and Address Organization Details Recorded Time Chronic effect of ultraviolet radiation on normal skin 229654011 Active 2022 Jose Harris MD [address], [place], [address], [facility] 3 15:44:33 Spider telangiecta sis of skin Active 2024 Jose Harris MD [address], [place], [address], [facility] 5 14:33:26 Solar lentiginosi s 501000085 Active 2018 Jose Harris MD [address], [place], [address], [facility] 9 19:23:05 Keratosis 382968956 Active 2018 Jose Harris MD [address], [place], [address], [facility] 9 19:23:06 Dermatofibr ginna 336719030 Active 2018 Jose Harris MD [address], [place], [address], [facility] 9 19:23:06 Family history of malignant melanoma 950355405 Active 2018 Jose Harris MD [address], [place], [address], [facility] 9 19:23:59 Dermatofibr ginna of left lower limb 0476479598260 105 Active 2018 Jose Harris MD [address], [place], [address], [facility] 9 19:24:00 Actinic keratosis 848213504 Active 2020 Jose Harris MD [address], [place], [address], [facility] 1 18:46:28 Problem Notes None recorded. Medical Equipment None Reported. Allergies No known drug allergies Medications Name Sig Start Date Stop Date Status Note LastModified by Organization Details LastModified Time atorvastatin 20 mg tablet active Not Available Not Available Not Available lamotrigine 200 mg tablet active Not Available Not Available Not Available azithromycin 250 mg tablet active Not Available Not Available Not Available tretinoin 0.025 % topical cream APPLY CREAM TOPICALLY TO FACE ONCE DAILY AT BEDTIME active Not Available Not Available N ot Available lisinopril 20 mg tablet TAKE 1 TABLET BY MOUTH DAILY active Not Available Not Available Not Available ondansetron HCl 4 mg tablet TAKE 1 TABLET BY MOUTH EVERY 6 HOURS NEEDED FOR NAUSEA FOR VOMITING active Not Available Not Available No t Available clonazepam 0.5 mg tablet TAKE 1 TABLET BY MOUTH ONCE DAILY active Not Available Not Available No t Available diphenoxylat e-atropine 2.5 mg-0.025 mg tablet active Not Available Not Available No t Available omeprazole 40 mg capsule,elva yed release active Not Available Not Available Not Available tramadol 50 mg tablet TAKE 1 TABLET BY MOUTH EVERY 6 HOURS NEEDED active Not Available Not Available No t Available amitriptylin e 10 mg tablet active Not Available Not Available Not Available indomethacin 25 mg capsule active Not Available Not Available Not Available omeprazole 20 mg capsule,elva yed release active Not Available Not Available Not Available diclofenac sodium 75 mg tablet,delay ed release active Not Available Not Available N ot Available gabapentin 100 mg capsule active Not Available Not Available Not Available estradiol 0.01% (0.1 mg/gram) vaginal cream INSERT 1/2 (ONE-HALF) APPLICATORF UL VAGINALLY AT BEDTIME 3 TIMES A WEEK active Not Available Not Available No t Available methylpredni solone 4 mg tablets in a dose pack USE DIRECTED active Not Available Not Available No t Available fluticasone propionate 50 mcg/actuatio n nasal spray,suspen brant active Not Available Not Available Not Available lamotrigine 100 mg tablet TAKE 2 & 1/2 (TWO & ONE-HALF) TABLETS BY MOUTH ONCE DAILY active Not Available Not Available No t Available bupropion HCl XL 300 mg 24 hr tablet, extended release TAKE 1 TABLET BY MOUTH ONCE DAILY active Not Available Not Available No t Available Tylenol active Not Available Not Avail able Not Available Prilosec active Not Available Not Avai lable Not Available Lamictal active Not Available Not Avai lable Not Available Wellbutrin SR active Not Available Not Available Not Available hydrochlorot hiazide 12.5 mg tablet active Not Available Not Available No t Available peg 3350-electro lytes 236 gram-22.74 gram-6.74 gram-5.86 gram solution active Not Available Not Available Not Available Paxlovid 300 mg (150 mg x 2)-100 mg tablets in a dose pack TAKE 3 TABLETS TOGETHER (TWO 150 MG NIRMATRELVI R TABLETS AND ONE 100 MG RITONAVIR TABLET) BY MOUTH TWICE DAILY FOR 5 DAYS. active Not Available Not Available No t Available Veozah 45 mg tablet active Not Available Not Available Not Available Vitals None Recorded Social History None recorded. Functional Status None recorded. Mental Status None recorded. Family History Nothing Reported. Medical History No medical history recorded. Gynecological HistoryNo gynecological history recorded. Obstetrics History GPAL:G 0 P 0 0 0 0 Past Encounters Encounter ID Performer Location Encounter Start Date Encounter Closed Date Diagnosis/Indication Diagnosis SNOMED-CT Code Diagnosis ICD10 Code Diagnosis Note [id number] Jose Harris MD Main Office [address] [facility] [address] [place] [id number] 11/06/2021 14:27:28 12/07/2021 13:41:31 Neoplasm of uncertain behavior of skin 85995180 D48.5 [id number] Jose Harris MD Main Office [facility] [facility] [address] [place] [id number] 11/26/2024 14:14:01 11/26/2024 14:37:50 Solar lentiginosis 360480160 L81.4 Chronic ef fect of ultraviolet radiation on normal skin 935644380 L57.8 Spider tel angiectasis of skin 1524979211 D18.01 Health Concerns Section Related Observation LastModified by Organization Detai ls LastModified Time None Recorded Concern Status LastModified by Organization Details LastModified Time None Recorded Advance Directives Directive None Recorded Payers Encounter Date Sequence Insurance Name Policy Number Policy Beal Covered Member ID Beal Member ID Guarantor Name 11/06/2021 1 [facility] [id number] Jo Lemus [id number] Jo Lemus 11/26/2024 1 [facility] [id number] Jo Lemus [id number] Jo Lemus Notes Date Note Type Note Provider Name and Address Organization Details Recorded Time 11/06/2021 text/html Bx of the left leg lesion, see prev photo, revd.Also pleased with the right cheek- AK resolved post cryo.Had requested tx to a left cheek brown spot- mac SK vs lentigo. Will do today. Jose Harris MD [address] [facility] [address], [place], [address], [facility] 11/06/2021 14:46:42 11/26/2024 text/html Check spot red of l medial cheek.Spots, brown, i don't like, on the l cheek, l upper back.Check hands . Jose Harris MD [address] [facility] [address], [place], [address], [facility] 11/26/2024 14:37:35 OBGyn Episode No OBEpisode recorded.
--- OUTSIDE RECORDS SUMMARY | 2025-01-17 02:25 | XMS_ITS | Referral Summary ---
Author Organization [facility] [address] Address [address] [place] [address] Care Team Providers Care Kiln Stacker Name Role Phone Yumiko Wayne MD Unavailable Dixie Mckenzie PT Unavailable Unavailable Yumiko Wayne MD Primary Care Provider [phone] Vivienne Reece MD Unavailable Encounters Date Type Department Care Team Description 12/31/2024 11:55 AM ORNAMENTAL IRONWORKER HELPER Office Visit [facility] [address] [place] [address] Nancy Mayes NP Menopausal symptoms (Primary Dx) 12/30/2024 Results Follow-Up [facility] [place] [address] Nancy Mayes NP 2024 9:40 AM ORNAMENTAL IRONWORKER HELPER Office Visit [facility] [place] [address] Nancy Mayes NP Routine gynecological examination (Primary Dx); Menopausal symptoms; Breast cancer screening by mammogram from Last 3 Months Allergies No known active allergies Medications buPROPion [...] Bipolar affective disorder, currently depressed, moderate 01/16/2023 Social History Tobacco Use Types Packs/Day Years Used Date Smoking Tobacco: Never Passive Smoke Exposure: Never Smokeless Tobacco: Never Tobacco Cessation:Counseling Given: Not Answered Comments No Sex and Gender Information Value Date Recorded Sex Assigned at Not on file Legal Sex Female 10:27 AM ORNAMENTAL IRONWORKER HELPER Gender Identity Female 12/03/2022 10:12 PM ORNAMENTAL IRONWORKER HELPER Sexual Orientation Straight 12/03/2022 10 :12 PM ORNAMENTAL IRONWORKER HELPER Last Filed Vital Signs Vital Sign Reading Time Taken Comments Blood Pressure 121/88 12/31/2024 11:55 AM ORNAMENTAL IRONWORKER HELPER Pulse 80 10/07/2023 1:25 PM ORNAMENTAL IRONWORKER HELPER Temperature 36.4 C (97.6 F) 05/25/2018 3:35 PM CDT Respiratory Rate 18 05/25/2018 3:34 PM CDT Oxygen Saturation 95% 05/25/2018 3:34 PM CDT Inhaled Oxygen Concentration - - Weight 59.4 kg (131 lb) 12/31/2024 11:55 AM ORNAMENTAL IRONWORKER HELPER Height 162.6 cm (5' 4 ) 12/31/2024 11:55 AM ORNAMENTAL IRONWORKER HELPER Body Mass Index 22.49 12/31/2024 11:55 AM ORNAMENTAL IRONWORKER HELPER Plan of Treatment Not on file Procedures Procedure Name Priority Date/Time Associated Diagnosis Comments THINPREP IMAGING PAP AND HPV MRNA E6/E7 REFLEX HPV 16,18/45 Routine 2024 11:28 AM ORNAMENTAL IRONWORKER HELPER Routine gynecological examination TESTOSTERONE, TOTAL AND FREE, SERUM Routine 2024 10:40 AM ORNAMENTAL IRONWORKER HELPER Menopausal symptoms COMPREHENSIVE METABOLIC PANEL Routine 2024 10:40 AM ORNAMENTAL IRONWORKER HELPER Menopausal symptoms ESTRONE Routine 2024 10:40 AM ORNAMENTAL IRONWORKER HELPER Menopausal symptoms ESTRADIOL Routine 2024 10:40 AM ORNAMENTAL IRONWORKER HELPER Menopausal symptoms from Last 3 Months Results * ThinPrep(R) Imaging Pap and HPV mRNA E6/E7 Reflex HPV 16,18/45 (2024 11:28 AM ORNAMENTAL IRONWORKER HELPER) CLINICAL INFORMATION: [facility] Comment:None given LMP [facility] Comment:NONE GIVEN Previous Pap [facility] Comment:NONE GIVEN Prev. Bx [facility] Comment:NONE GIVEN SOURCE: [facility] Comment:None given Pap, specimen adequacy [facility] Comment: Satisfactory for evaluation. Endocervical/transformation zone component present. Age and/or menstrual status not provided HPV interp [facility] Comment: Cytology Results: Negative for intraepithelial lesion or malignancy. COMMENTS [facility] Comment: This case could not be evaluated with computer assisted technology. The slide was manually screened according to routine procedures. Flour Inspector [facility] Comment: TLS, CT(ASCP) CT Screening Location: [place] [address] [address] [facility] [address] Comment [facility] Comment: EXPLANATORY NOTE: The Pap is a [...] High Risk E6/E7 Not Detected Not Detected [facility] Comment: Methodology: Motor Expert-Mediated Amplification This assay detects E6/E7 viral messenger RNA (mRNA) from 14 high-risk HPV types (16,18,31,33,35,39,45,51,52,56,58,59,66,68). Cervical sources are required for HPV testing. If a vaginal source from a patient who has had a total hysterectomy with removal of cervix was submitted, please contact the testing laboratory for alternative testing options. For additional information, please refer to http://education.Wangdaizhijia/faq/QAI444h2 (This link if provided for information/ educational purposes only.) Swab 2024 11:2 8 AM ORNAMENTAL IRONWORKER HELPER 2024 11:20 PM ORNAMENTAL IRONWORKER HELPER Nancy Mayes METAL PRODUCTS VIEWER LAB CYTOLOGY ORDERABLES Final Result [place] [address] [place] [address] [facility] [address] [address] [address] * Estrone (2024 10:40 AM ORNAMENTAL IRONWORKER HELPER) Estrone, lc/ms/ms <10 pg/mL [facility]/ [facility], Comment: Adult Female Reference Ranges for Estrone: [...] analytical performance characteristics have been determined by [facility]. It has not been cleared or approved by FDA. This assay has been validated pursuant to the CLIA regulations and is used for clinical purposes. Blood 2024 10:4 0 AM ORNAMENTAL IRONWORKER HELPER 2024 10:41 AM ORNAMENTAL IRONWORKER HELPER Nancy Mayes METAL PRODUCTS VIEWER LAB BLOOD ORDERABLES Final Re sult [facility], [address] [place] [address] * Estradiol (2024 10:40 AM ORNAMENTAL IRONWORKER HELPER) [facility] Estradiol 16 pg/mL [facility] Comment: Reference Range Follicular Phase: 19-144 Mid-Cycle: 64-357 Luteal Phase: 56-214 Postmenopausal: < or = 31 Reference range established on post-pubertal patient population. No pre-pubertal reference range established using this assay. For any patients for whom low Estradiol levels are anticipated (e.g. males, pre-pubertal children and hypogonadal/post-menopausal females), the [facility] Estradiol, Ultrasensitive, LCMSMS assay is recommended (order code 44176). Please note: patients being treated with the drug fulvestrant (Faslodex(R)) have demonstrated significant interference in immunoassay methods for estradiol measurement. The cross reactivity could lead to falsely elevated estradiol test results leading to an inappropriate clinical assessment of estrogen status. [facility] order code [id number], Ultrasensitive LC/MS/MS demonstrates negligible cross reactivity with fulvestrant. Blood 2024 10:4 0 AM ORNAMENTAL IRONWORKER HELPER 2024 10:41 AM ORNAMENTAL IRONWORKER HELPER Nancy Mayes METAL PRODUCTS VIEWER LAB BLOOD ORDERABLES Final Re sult [facility] [address] [address] [address] * Testosterone, Total and Free, Serum (2024 10:40 AM ORNAMENTAL IRONWORKER HELPER) Testosterone 16 2 - 45 ng/dL [facility] Comment: For additional information, please refer to https://education.Wangdaizhijia/faq/ACE504 (This link is being provided for informational/educational purposes only.) (Note) This test was developed and its analytical performance characteristics have been determined by [facility]. It has not been cleared or approved by the FDA. This assay has been validated pursuant to the CLIA regulations and is used for clinical purposes. Testosterone, free 1.6 0.1 - 6.4 pg/mL [facility] Comment: (Note) This test was developed and its analytical performance characteristics have been determined by [facility]. It has not been cleared or approved by the FDA. This assay has been validated pursuant to the CLIA regulations and is used for clinical purposes. [facility] med fusion [address] [facility] [employer] [place] [address],[address] [facility] [address] Brianna Delgado MD, PhD Sex hormone binding globulin 80.2 17 - 124 nmol/L [facility] Blood 2024 10:4 0 AM ORNAMENTAL IRONWORKER HELPER 2024 10:41 AM ORNAMENTAL IRONWORKER HELPER Nancy Mayes METAL PRODUCTS VIEWER LAB BLOOD ORDERABLES Final Re sult [facility] [address] [place] [address], [address] [place] [address] * Comprehensive metabolic panel (2024 10:40 AM ORNAMENTAL IRONWORKER HELPER) Glucose 87 65 - 99 mg/dL [facility] Blood 2024 10:4 0 AM ORNAMENTAL IRONWORKER HELPER 2024 10:41 AM ORNAMENTAL IRONWORKER HELPER us Nancy Mayes METAL PRODUCTS VIEWER LAB BLOOD ORDERABLES Final Re sult [facility] [address] [address] [address] from Last 3 Months Insurance [facility] [place] [address] [place] [address] HEALTH Care Teams Kiln Stacker Relationship Specialty Start Date End Date Yumiko Wayne MD [address] [place] [address] [address] [place] [address] PCP - General Family Medicine 06/06/18 Yumiko Wayne MD [address] [place] [address] [address] [place] [address] Referring Physician Family Medicine 03/10/18 Dixie Mckenzie PT Physical Therapist Physical Therapy 03/17/18 [place] [address] [place] [address] Consulting Physician Obstetrics and Gynecology 12/20/24
--- OUTSIDE RECORDS SUMMARY | 2025-01-17 02:25 | XMS_ITS | Clinical Summary ---
Author Organization [facility] Address [address] [place] [address] Phone Care Team Providers Care Medical Clerk Name Role Phone Unavailable Primary Care Provider Unavailabl e Allergies No known active allergies Medications lamoTRIgine (LaMICtal) 100 mg tablet Take 100 mg by mouth daily. Active buPROPion HCL (WELLBUTRIN XL) 300 mg Extended Release 24 hour tablet Take 300 mg by mouth daily in the morning. Active atorvastatin (LIPITOR) 20 mg tablet Take 20 mg by mouth daily. Active lisinopriL (PRINIVIL) 20 mg tablet Take 20 mg by mouth daily. Active diclofenac sodium (VOLTAREN) 75 mg Tablet, Delayed Release (E.C.) Take 75 mg by mouth 2 times daily. Active omeprazole (PriLOSEC) 40 mg Capsule, Delayed Release(E.C.) Take 40 mg by mouth daily. Active fezolinetant (Veozah) 45 mg tablet Take 45 mg by mouth daily. Active clonazePAM (KlonoPIN) 0.5 mg Tablet Take 0.5 mg by mouth 3 times daily as needed for Anxiety. Active Encounters Date Type Department Care Team Description 01/13/2025 External Device Data [facility]CTION Provider, Abstract 01/12/2025 External Device Data [facility] AB[facility]CTION Provider, Abstract 01/09/2025 External Device Data [facility]CTION Provider, Abstract 01/09/2025 External Device Data [facility] Provider, Abstract 12/29/2024 External Device Data [facility] Provider, Abstract 12/29/2024 External Device Data [facility] Provider, Abstract 12/29/2024 External Device Data [facility] Provider, Abstract 12/28/2024 1:40 PM FLIGHT COMMUNICATIONS OFFICER - 12/28/2024 2:20 PM FLIGHT COMMUNICATIONS OFFICER Surgery [facility] [place] [address] [place] [address] Patricia Hernández MD COLONOSCOPY 12/28/2024 12:07 PM FLIGHT COMMUNICATIONS OFFICER Anesthesia Event [facility] [place] [address] [place] [address] Tr Sierra MD 12/28/2024 11:38 AM FLIGHT COMMUNICATIONS OFFICER - 12/28/2024 1:03 PM FLIGHT COMMUNICATIONS OFFICER Hospital Encounter [facility] [place] [address] [place] [address] Patricia Hernández MD Screen for colon cancer Discharge Disposition: Home or Self Care 12/28/2024 Results Follow-Up [facility] [place] [address] [place] [address] Patricia Hernández MD COLONOSCOPY REPORT 11/23/2024 Abstract [facility] Provider, Abstract from Last 3 Months Family History Medical History Relation Name Comments Colon Cancer Neg Hx Social History Tobacco Use Types Packs/Day Years Used Date Smoking Tobacco: Never Smokeless Tobacco: Never Tobacco Cessation:Counseling Given: Not Answered Alcohol Use Standard Drinks/Week Comments Yes 4 (1 standard drink = 0.6 oz pur e alcohol) Feeling Safe Answer Date Recorded Are you in a relationship wi th someone who hurts you emotionally and/or physically? No 12/28/2024 Comments No Sex and Gender Information Value Date Recorded Sex Assigned at Not on file Legal Sex Female 3:32 AM FLIGHT COMMUNICATIONS OFFICER Gender Identity Not on file Sexual Orientation Not on file Last Filed Vital Signs Vital Sign Reading Time Taken Comments Blood Pressure 121/68 12/28/2024 12:48 PM FLIGHT COMMUNICATIONS OFFICER Pulse 81 12/28/2024 12:48 PM FLIGHT COMMUNICATIONS OFFICER Temperature 36.4 C (97.5 F) 12/28/2024 12:31 PM FLIGHT COMMUNICATIONS OFFICER Respiratory Rate 17 12/28/2024 12:48 PM FLIGHT COMMUNICATIONS OFFICER Oxygen Saturation 98% 12/28/2024 12:48 PM FLIGHT COMMUNICATIONS OFFICER Inhaled Oxygen Concentration - - Weight 61.7 kg (136 lb) 12/28/2024 11:55 AM FLIGHT COMMUNICATIONS OFFICER Height 162.6 cm (5' 4 ) 12/28/2024 11:55 AM FLIGHT COMMUNICATIONS OFFICER Body Mass Index 23.34 12/28/2024 11:55 AM FLIGHT COMMUNICATIONS OFFICER Plan of Treatment Health Maintenance Due Date Last Done Comments DTAP/TDAP/TD VACCINES (1 - Tdap) 1993 HEPATITIS B VACCINES (1 of 3 - 19+ 3-dose series) 1993 CERVICAL CANCER SCREENING 2004 BREAST CANCER SCREENING 2014 FIT-DNA Q 3 years 2019 FIT/FOBT Q 1 year 2019 Flex Sig/CT Colonography Q 5 years 2019 INFLUENZA VACCINE (#1) 2024 , 08/20/2020, 12/06/2016 ZOSTER VACCINE (1 of 2) 2024 COLORECTAL SCREENING 12/28/2034 12/28/2024, 12/28/19 25 Colorectal Cancer Screening 12/28/2034 Preventative Visit- Commercial Completed 2024 Procedures Procedure Name Priority Date/Time Associated Diagnosis Comments CA COLONOSCOPY FLX DX W/COLLJ SPEC WHEN PFRMD 12/28/2024 1:40 PM FLIGHT COMMUNICATIONS OFFICER Screen for colon cancer COLONOSCOPY REPORT 12/28/2024 12 :30 PM FLIGHT COMMUNICATIONS OFFICER from Last 3 Months Results * COLONOSCOPY REPORT (12/28/2024 12:30 PM FLIGHT COMMUNICATIONS OFFICER) Narrative Procedure Note Patricia Hernández MD - 12/28/2024 12:30 PM CST [facility] Endoscopy Patient Name: Jo Lemus Procedure Date: 12/28/2024 Date of : 1975 Attending MD: Patricia Hernández MD, Procedure: Colonoscopy Indications: Screening for colorectal malignant neoplasm Providers: Patricia Hernández MD Referring MD: Zuly Obrien Medicines: Monitored Anesthesia Care Complications: No immediate complications. Procedure: Informed consent was obtained for the procedure, including moderate sedation after risks were discussed. Based on the pre-procedure assessment, including review of the patient's medical history, medications, allergies, and review of systems, the patient was deemed to be an appropriate candidate for sedation. A timeout was performed. Continuous ECG monitoring, pulse oximetry, blood pressure monitoring, and direct observation were performed. The Colonoscope was introduced through the anus and advanced to the terminal ileum. The colonoscopy was performed without difficulty. The patient tolerated the procedure well. The quality of the bowel preparation was excellent. The terminal ileum, ileocecal valve, appendiceal orifice, and rectum were photographed. Estimated Blood Loss: Estimated blood loss: none. Findings: The perianal and digital rectal examinations were normal. The terminal ileum appeared normal. Internal hemorrhoids were found during retroflexion. The hemorrhoids were small. The exam was otherwise without abnormality on direct and retroflexion views. Impression: - The examined portion of the ileum was normal. - Internal hemorrhoids. - The examination was otherwise normal on direct and retroflexion views. - No specimens collected. Recommendation: - Discharge patient to home. - Resume previous diet. - Continue present medications. - Repeat colonoscopy in 10 years for screening purposes. Patricia Hernández MD 12/28/2024 12:29:57 PM This report has been signed electronically. Number of Addenda: [address]; [place] [address] Patricia Hernández MD GI PROCEDURE ORDERABLES F inal Result from Last 3 Months Insurance Advance Directives For more information, please contact: [phone] * Full Code (Latest Code Status on File) Date Activated Date Inactivated Comments 12/28/2024 11:50 AM 12/28/2024 3:03 PM
--- OUTSIDE RECORDS SUMMARY | 2025-01-17 02:25 | XMS_ITS | Encounter Summary ---
Author Organization [facility] Address [address] [place] [address] Care Team Providers Care Podiatry Doctor Name Role Phone Unavailable Primary Care Provider Unavailabl e Encounter Details Date Type Department Care Team ([facility] st Contact Info) Description 11/18/1998 Outpatient Historical [facility] Primary Care - [address] [place] [address] Maksim Ch, DO NO ADDRESS ON FILE Social History Tobacco Use Types Packs/Day Years Used Date Smoking Tobacco: Never Assessed Comments Unknown Sex and Gender Information Value Date Recorded Sex Assigned at Not on file Legal Sex Female 3:32 AM TIRE MOLD ENGRAVER Gender Identity Not on file Sexual Orientation Not on file documented as of this encounter Plan of Treatment Not on file documented as of this encounter Visit Diagnoses Not on filedocumented in this encounter
--- OUTSIDE RECORDS SUMMARY | 2025-01-17 02:25 | XMS_ITS | Patient Health Summary ---
Author Organization [facility] Address [address] [place] [address] Care Team Providers Care Order Planner Name Role Phone Unavailable Primary Care Provider Unavailabl e Note from [facility],non-owned Affiliates and Associated Physician Practices is amultiple site organization consisting of ambulatory clinics and hospital sitesin [place], [place], [place] and [place]. This disclosure is being madepursuant to the Care Everywhere program and may not contain all information available regarding this patient. Last updated 18.[facility] Social History Tobacco Use Types Packs/Day Years Used Date Smoking Tobacco: Never Assessed Sex and Gender Information Value Date Recorded Sex Assigned at Not on file Gender Identity Not on file Sexual Orientation Not on file Procedures * DERMATOPATHOLOGY(Performed 11/06/2021) Results * DERMATOPATHOLOGY (11/06/2021 12:00 AM [facility]) Case Report Dermatopathology Report Case: [id number] Authorizing Provider: Jose Harris MD Collected: 11/06/2021 12:00 AM Ordering Location: [facility] DermPath Lab Received: 11/10/2021 07:39 AM Pathologist: Kelly Reese MD Specimen: Skin, left leg lower medial 2 1:04 PM [facility] DERMATOPATHOLOGY LABORATORY Final Diagnosis Specimen A. SKIN, left leg lower medial: DERMATOFIBROMA, HYPOCELLULAR (D23.9) 2 1:04 PM [facility] DERMATOPATHOLOGY LABORATORY Clinical History Dermatofibroma R/O BCC. 2 1:04 PM [facility] DERMATOPATHOLOGY LABORATORY Gross Description Specimen A: Received is one formalin filled container labeled with the patient's name and designated left leg lower medial. The specimen consists of a shave biopsy measuring [id number]. Jar 0. 2 1:04 PM [facility] DERMATOPATHOLOGY LABORATORY Microscopic Description Specimen A. SKIN, left leg lower medial: There is epidermal hyperplasia. Within the dermis, there are fibrohistiocytic cells in haphazard array among coarse collagen bundles. 2 1:04 PM [facility] DERMATOPATHOLOGY LABORATORY Disclaimer An external and internal positive and negative controls are appropriate for the histochemical, immunohistochemical and immunofluorescence stain(s) in this case (if any), except where stated explicitly. The performance characteristics of the stain(s) cited in this report were developed and its performance characteristic determined by the Dermatopathology Laboratory at [facility], directed by Dr. Hansel Cheung. These tests need not be, and therefore are not, approved by the [place] Food and Drug Administration. The tests are used for clinical purposes. Billing Codes Specimen Charges Stain Charges [address]33[address] 1 2 1:04 PM [facility] DERMATOPATHOLOGY LABORATORY Embedded Images 2 1:04 PM [facility] DERMATOPATHOLOGY LABORATORY Pathology/Cytolog y TISSUE SPECIMEN FROM SKIN / Unknown 11/06/2021 11/10/2021 7:39 AM SENIOR GAMEMASTER Jose Harris MD LAB - PATHOLOGY/CYTO LOGY ORDERABLES DERMATOPATHOLOGY LABORATORY [facility] - Department of Dermatology [address], [address] [phone]
--- OUTSIDE RECORDS SUMMARY | 2025-01-17 02:25 | XMS_ITS | Encounter Summary ---
Author Organization [facility] Address [address] [place] [address] Care Team Providers Care [employer] Name Role Phone Unavailable Primary Care Provider Unavailabl e Encounter Details Date Type Department Care Team ([facility] st Contact Info) Description 11/14/1998 Outpatient Historical [facility] Primary Care - [address] [place] [phone] Maksim Ch, DO NO ADDRESS ON FILE Social History Tobacco Use Types Packs/Day Years Used Date Smoking Tobacco: Never Assessed Comments Unknown Sex and Gender Information Value Date Recorded Sex Assigned at Not on file Legal Sex Female 3:32 AM TRANSFER IRON OPERATOR Gender Identity Not on file Sexual Orientation Not on file documented as of this encounter Plan of Treatment Not on file documented as of this encounter Visit Diagnoses Not on filedocumented in this encounter
[2025-01-17 03:04] LABS: Basophils Percent Auto 0.1 % (0.2-1.2); Eosinophils Percent Auto 0.4 % (0-4.4); Hematocrit 40.2 % (37.0-47.0); Hemoglobin 13.8 g/dL (12.0-15.0); Immature Granulocyte Absolute 0.03 K/mm3 (0.00-0.031); Immature Granulocyte Percent A 0.4 % (0-0.5); Lymphocytes Absolute Auto 1.28 K/mm3 (0.9-3.2); Lymphocytes Percent Auto 16.6 % (18.3-44.2); Mean Corpuscular HGB Conc 34.3 g/dl (32-36); Mean Corpuscular Hemoglobin 32.5 pg (26-34); Mean Corpuscular Volume 94.8 fl (80-100); Mean Platelet Volume 10.4 fl (7.4-10.4); Monocytes Absolute Auto 0.2 K/mm3 (0.1-0.6); Monocytes Percent Auto 3.1 % (2.6-8.5); Neutrophils Absolute Auto 6.1 K/mm3 (1.3-6.7); Neutrophils Percent Auto 79.4 % (45.5-73.1); Platelet Count Result 246 k/mm3 (150-375); Red Blood Count 4.24 M/mm3 (4.2-5.4); Red Cell Distribution Width 12.2 % (11.5-14.5); White Blood Count 7.7 K/mm3 (4.5-10.0)
[2025-01-17] MEDS: ACETAMINOPHEN 500 MG TABLET 1000 MG PO (03:07)
[2025-01-17] MEDS: SODIUM CHLORIDE 0.9% IV 1,000 ML 999 ML IV CONT (03:07)
[2025-01-17] MEDS: DICYCLOMINE HCL 10 MG CAPSULE 20 MG PO (03:08)
[2025-01-17] MEDS: KETOROLAC 15 MG/ML VIAL (*BKC) IV PUSH (03:08)
[2025-01-17 03:09] LABS: BEDSIDEPREGUCG Negative (Negative)
[2025-01-17 03:17] LABS: Alanine Aminotransferase 21 U/L (6-35); Albumin Level 4.6 g/dL (3.5-5.1); Alkaline Phosphatase 87 U/L (38-126); Anion Gap 7 mmol/L (4-12); Aspartate Amino Transferase 25 U/L (14-36); Blood Urea Nitrogen 12 mg/dL (7-17); Calcium 8.9 mg/dL (8.4-10.2); Carbon Dioxide 31 mmol/L (22-30); Chloride 96 mmol/L (98-107); Estimated CRCL calculation 71 ml/min; Estimated Glomerular Filt Rate > 60; Glucose 109 mg/dL (65-110); Lipase 54 U/L (23-300); Potassium 3.9 mmol/L (3.4-5.0); Sodium 134 mmol/L (137-145)
[2025-01-17 03:28] LABS: Add Urine Microscopic? NO; Appearance Urine Clear (Clear); Bilirubin Urine Negative (Negative); Blood Urine Negative (Negative); Color Urine Yellow (Yellow); Glucose Urine UA Negative (Negative); Ketones Urine 1+ mg/dL (Negative); Leukocyte Esterase Ur Negative LEU/UL (Negative); Nitrate Urine Negative (Negative); Protein Urine Negative (Negative); Specific Grav Ur 1.008 (1.001-1.035); Urobilinogen Urine 0.2 mg/dL (<2.0); pH Urine >=9.0 (5.0-9.0)
[2025-01-17 05:01] VITALS: BP 139/81; PULSE 87; RESP 14; O2SAT 100
[2025-01-17 06:00] VITALS: BP 139/81; PULSE 87; RESP 14; O2SAT 100
== END 2025-01-17 06:02 | disposition home or self-care (01) ==
PROVIDERS: Physician Assistant; Emergency Provider Student in an Organized Health Care Education/Training Program
DX: K59.00 Constipation, unspecified (principal); E87.1 Hypo-osmolality and hyponatremia; F90.9 Attention-deficit hyperactivity disorder, unspecified type
CPT/HCPCS: 36415; 74018; 80053; 81003; 81025; 83690; 85025; 96361; 96374; 99284; A9270; J1885; J7030